=== PATIENT | male | born 1975 | race Caucasian/White ===

== ENCOUNTER 2018-01-28 08:26 | Emergency (ER) | payer SELFPAY ==
[~2018-01-28] VITALS: Ht 177.8 cm; Wt 94.3 kg
[2018-01-28 08:53] VITALS: BP 149/92
[2018-01-28] MEDS ORDERED: BENZOCAINE AEROSOL SPRAY 20%, 60ML ONE (09:47)
[2018-01-28] MEDS ORDERED: BENZOCAINE 20% SPRAY 0.5ML TP ONE (10:00)
== END 2018-01-28 10:17 | disposition home or self-care (01) ==
LOC: ED 10:11
DX: K04.7 Periapical abscess without sinus (principal)
CPT/HCPCS: 41800; 99283